=== PATIENT | female | born 1970 | race Caucasian/White ===

== ENCOUNTER 2017-11-26 13:06 | Emergency (ER) | payer MEDICAID ==
[~2017-11-26] VITALS: Ht 162.6 cm; Wt 65.9 kg
[~2017-11-26 13:06] MED LIST: DIPH25CA66 PO
[2017-11-26 13:24] VITALS: BP 137/84
[2017-11-26] MEDS ORDERED: cefTRIAXone SOD 1,000 MG VL IM ONE (14:45)
[2017-11-26] MEDS ORDERED: HYDROcodone-ACET 10/325MG TAB PO ONE (14:45)
[2017-11-26] MEDS ORDERED: KETOROLAC TROMETH 60MG/2ML VIAL IM ONE (14:45)
== END 2017-11-26 15:28 | disposition home or self-care (01) ==
LOC: ER 13:09
DX: K08.89 Other specified disorders of teeth and supporting structures (principal); Z88.0 Allergy status to penicillin; Z79.899 Other long term (current) drug therapy
CPT/HCPCS: 96372; 99284; J0696; J1885

== ENCOUNTER 2017-12-21 04:24 | Emergency (ER) | payer MEDICAID, OTHER ==
[~2017-12-21] VITALS: Ht 162.6 cm; Wt 66.7 kg
[2017-12-21 05:20] VITALS: BP 119/71
[2017-12-21] MEDS ORDERED: KETOROLAC TROMETH 60MG/2ML VIAL IM ONE (06:45)
== END 2017-12-21 07:37 | disposition home or self-care (01) ==
LOC: ER 04:28
DX: K04.7 Periapical abscess without sinus (principal); Z90.89 Acquired absence of other organs; Z88.0 Allergy status to penicillin
CPT/HCPCS: 96372; 99283; J1885